=== PATIENT | male | born 1975 | race Caucasian/White ===

== ENCOUNTER 2017-05-24 20:49 | Emergency (ER) | payer OTHER ==
[~2017-05-24] VITALS: Ht 172.7 cm; Wt 63.5 kg
[~2017-05-24 20:49] MED LIST: DIGESTIVE ENZY1 EACH PO; DOXEPIN 50MG CA50 M1 PO; DOXEPIN HCL100 MG PO; FAMVIR500 MG PO; FLOMAX0.4 MG; PEPPERMINT OIL PO; RITALIN10 MG; TRAMADOL 50 MG50 MG PO; TRAZODONE HCL100 MG PO; VICODIN HP 10-1 EAC1 PO; ZOFRAN4 MG PO; ZOLOFT100 MG
[2017-05-24 21:21] LABS: ABSOLUTE BASOPHILS 0.1 thou/uL (0.0-0.2); ABSOLUTE EOSINOPHILS 0.1 thou/uL (0.0-0.7); ABSOLUTE LYMPHOCYTES 2.1 thou/uL (0.8-5.3); ABSOLUTE MONOCYTES 0.5 thou/uL (0.0-1.2); ABSOLUTE NEUTROPHILS 2.3 thou/uL (1.6-8.1); EOSINOPHILS 1.8 %; HEMATOCRIT 46.7 % (42.0-52.0); LYMPHOCYTES 41.3 %; MCH 29.9 pg (26.0-34.0); MCHC 34.2 g/dL (28.0-37.0); MCV 87.5 fL (80.0-100.0); MONOCYTES 10.8 %; MPV 9.5 fl. (7.2-11.1); NUCLEATED RBCS 0 /100WBC; PLATELET COUNT* 187 thou/uL (150-400); POLYS 45.1 %; RBC 5.33 mil/uL (4.50-6.00); RDW-CV 12.8 % (10.5-14.5)
[2017-05-24] MEDS ORDERED: OMEPRAZOLE40 MG PO (21:23)
[2017-05-24] MEDS ORDERED: LINZESS145 MCG PO (21:23)
[2017-05-24] MEDS ORDERED: OXYCODONE HCL 55 MG PO (21:24)
[2017-05-24 21:28] LABS: CALCIUM 8.9 mg/dL (8.5-10.1); CREATININE 0.8 mg/dL (0.6-1.3); POTASSIUM 3.7 mmol/L (3.5-5.1)
[2017-05-24 21:32] LABS: ALBUMIN 4.4 g/dL (3.4-5.0); TOTAL BILIRUBIN 0.4 mg/dL (<0.1-1.0); TOTAL PROTEIN 7.5 g/dL (6.4-8.2)
[2017-05-24 21:52] LABS: INFLUENZA A ANTIGEN None Detected (None Detect); INFLUENZA B ANTIGEN None Detected (None Detect)
[2017-05-24 22:01] LABS: URINE BILIRUBIN NEGATIVE (Negative); URINE BLOOD NEGATIVE (Negative); URINE CLARITY CLEAR; URINE COLOR YELLOW; URINE GLUCOSE-RANDOM NEGATIVE (Negative); URINE KETONES NEGATIVE (Negative); URINE LEUKOCYTES-REFLEX NEGATIVE (Negative); URINE NITRITE-REFLEX NEGATIVE (Negative); URINE PROTEIN NEGATIVE (Negative); URINE SPECIFIC GRAVITY 1.015 (1.005-1.030); URINE UROBILINOGEN 0.2 E.U./dl (0.2-1.0)
[2017-05-24] MEDS ORDERED: PROMS25 WY RECTAL (22:16)
[2017-05-24] MEDS ORDERED: TORADOL 10 MG T10 MG PO (22:16)
[2017-05-24 23:15] VITALS: BP 118/76
== END 2017-05-24 23:15 | disposition home or self-care (01) ==
LOC: M.ERS 20:49
PROVIDERS: Physician Assistant
DX: K86.1 Other chronic pancreatitis (principal); K21.9 Gastro-esophageal reflux disease without esophagitis; Z90.49 Acquired absence of other specified parts of digestive tract; Z90.89 Acquired absence of other organs